=== PATIENT | female | born 1990 | race African-American/Black ===

== ENCOUNTER 2017-09-08 16:12 | Emergency (ER) | payer OTHER ==
--- NOTE | 2017-09-08 16:16 | PDOC ---
History of Present Illness <Abi Rodriguez - Last Filed: 09/08/17 16:25> - General History Source: Patient Exam Limitations: No Limitations - History of Present Illness Initial Comments: 09/08/17 16:29 The patient is a 27 year old female, with no significant past medical history, who presents to the emergency department with a sore throat for approximately 2 days. The patient reports a sore throat and associated pain similar to when she has tonsillitis in the past. Patient endorses associated dry cough, runny nose, nasal congestion, and chills, but denies any fever, headache, or dizziness. Patient reports she has not taken anything for her symptoms other than tea. She reports she has not been eating solids or fluids. She reports abdominal discomfort, but denies any nausea, vomiting, diarrhea, constipation, or changes in urination. She denies any associated chest pain, shortness of breath, diaphoresis, or palpitations. Allergies: NKDA Past Surgical History: None reported. Social History: Non smoker. No ETOH or recreational drug use <Mayelin Odonnell - Last Filed: 09/08/17 16:30> - General Chief Complaint: Sore Throat Stated Complaint: SORE THROAT Time Seen by Provider: 09/08/17 16:16 Past History - Suicide/Smoking/Psychosocial Hx Smoking History: Never smoked Have you smoked in the past 12 months: No Number of Cigarettes Smoked Daily: 0 Hx Alcohol Use: No Substance Use Type: None <Abi Rodriguez - Last Filed: 09/08/17 16:25> <Mayelin Odonnell - Last Filed: 09/08/17 16:30> - Past Medical History Allergies/Adverse Reactions: Allergies Allergy/AdvReac Type Severity Reaction Status Date / Time No Known Allergies Allergy Verified 09/08/17 16:13 Home Medications: Ambulatory Orders NK [No Known Home Medication] 09/08/17 Review of Systems - Review of Systems Able to Perform ROS?: Yes Comments:: 09/08/17 16:29 GENERAL/CONSTITUTIONAL: Yes chills. No fever. No weakness. HEAD, EYES, EARS, NOSE AND THROAT: Yes sore throat, runny nose, nasal congestion. No change in vision. No ear pain or discharge. CARDIOVASCULAR: No chest pain or shortness of breath. RESPIRATORY: Yes cough. No wheezing, or hemoptysis. GASTROINTESTINAL: Yes abdominal discomfort. No nausea, vomiting, diarrhea or constipation. GENITOURINARY: No dysuria, frequency, or change in urination. MUSCULOSKELETAL: No joint or muscle swelling or pain. No neck or back pain. SKIN: No rash NEUROLOGIC: No headache, vertigo, loss of consciousness, or change in strength/ sensation. ENDOCRINE: Yes decreased appetite.. No abnormal weight change. HEMATOLOGIC/LYMPHATIC: No anemia, easy bleeding, or history of blood clots. ALLERGIC/IMMUNOLOGIC: No hives or skin allergy. <Mayelin Odonnell - Last Filed: 09/08/17 16:30> *Physical Exam - Vital Signs Last Vital Signs Temp Pulse Resp BP Pulse Ox 99.8 F H 103 H 20 117/72 98 09/08/17 16:12 09/08/17 16:12 09/08/17 16:12 09/08/17 16:12 09/08/17 16:12 - Physical Exam Comments: 09/08/17 16:30 GENERAL: Awake, alert, and fully oriented, in no acute distress HEAD: No signs of trauma EYES: PERRLA, EOMI, sclera anicteric, conjunctiva clear ENT: Moderate posterior oropharynx erythema, but no exudates. Moist mucosa. Auricles normal inspection, hearing grossly normal, nares patent, NECK: Normal ROM, supple, no lymphadenopathy, JVD, or masses LUNGS: Breath sounds equal, clear to auscultation bilaterally. No wheezes, and no crackles HEART: Regular rate and rhythm, normal S1 and S2, no murmurs, rubs or gallops ABDOMEN: Soft, nontender, normoactive bowel sounds. No guarding, no rebound. No masses EXTREMITIES: Normal range of motion, no edema. No clubbing or cyanosis. No cords, erythema, or tenderness NEUROLOGICAL: Cranial nerves II through XII grossly intact. Normal speech, normal gait SKIN: Warm, Dry, normal turgor, no rashes or lesions noted. <Mayelin Odonnell - Last Filed: 09/08/17 16:30> Medical Decision Making - Medical Decision Making 09/08/17 16:25 patient presents to the ED complaining of two days of sore throat, nasal congestion, non productive cough. Denies fevers but complains of chills. exam is normal except for very mild tachycardia. No symptoms suggestive of strep pharyngitis. Will discharge home with instructions to take motrin and rest. <Abi Rodriguez - Last Filed: 09/08/17 16:25> *DC/Admit/Observation/Transfer - Discharge Dispostion Admit: No <Abi Rodriguez - Last Filed: 09/08/17 16:25> - Attestations Scribe Attestion: 09/08/17 16:30 Documentation prepared by Mayelin Odonnell, acting as territory sales manager medical for Abi Rodriguez MD. <Mayelin Odonnell - Last Filed: 09/08/17 16:30> Diagnosis at time of Disposition: Viral pharyngitis - Discharge Dispostion Disposition: HOME Condition at time of disposition: Good - Patient Instructions Printed Discharge Instructions: DI for Viral Pharyngitis Additional Instructions: return to the ED for very severe sore throat unable to tolerate fluids, severe pain, severe headache with fever and stiff neck, other new or changing symptoms. - Post Discharge Activity Forms/Work/School Notes: Back to Work
[2017-09-08 16:21] VITALS: BP 117/72; PULSE 103; TEMP 99.8; BMI 26.2
== END 2017-09-08 16:37 | disposition home or self-care (01) ==
LOC: FER 16:12
DX: J02.8 Acute pharyngitis due to other specified organisms (principal); B97.89 Other viral agents as the cause of diseases classified elsewhere
CPT/HCPCS: 99281-25

== ENCOUNTER 2021-10-23 14:09 | Emergency (ER) | payer OTHER ==
[2021-10-23 14:20] VITALS: BP 133/86; PULSE 93; TEMP 99.1; BMI 26.6
[2021-10-23] MEDS ORDERED: LIDOCAINE 5% TOPICAL PATCH TP ONE (14:37)
[2021-10-23] MEDS ORDERED: IBUPROFEN 600 MG TABLET (FP) PO ONE ×2 (14:37→14:44)
[2021-10-23] MEDS ORDERED: ACETAMINOPHEN 500 MG TABLET (FP) PO ONE (14:39)
[2021-10-23] MEDS ORDERED: ACETAMINOPHEN 500 MG TABLET (FP) ONE (14:44)
[2021-10-23] MEDS ORDERED: LIDOCAINE 5% TOPICAL PATCH ONE (14:45)
[2021-10-23] MEDS ORDERED: LIDOCAINE PATCH REMOVAL MC SCH (22:00)
== END 2021-10-23 16:00 | disposition home or self-care (01) ==
LOC: FER 14:09
PROC: 3E03329 Introduction of Other Anti-infective into Peripheral Vein, Percutaneous Approach (ICD-10-PCS; principal; 2021-10-23)
PROC: 3E03329 Introduction of Other Anti-infective into Peripheral Vein, Percutaneous Approach (ICD-10-PCS; 2021-10-23)
PROC: 3E033GC Introduction of Other Therapeutic Substance into Peripheral Vein, Percutaneous Approach (ICD-10-PCS; 2021-10-23)
PROC: 3E033GC Introduction of Other Therapeutic Substance into Peripheral Vein, Percutaneous Approach (ICD-10-PCS; 2021-10-23)
PROC: 3E0337Z Introduction of Electrolytic and Water Balance Substance into Peripheral Vein, Percutaneous Approach (ICD-10-PCS; 2021-10-23)
DX: G56.22 Lesion of ulnar nerve, left upper limb (principal); W00.0XXA Fall on same level due to ice and snow, initial encounter
CPT/HCPCS: 73090-TC-LT-FY; 73590-TC-LT-FY; 84703; 96361; 96374; 96375; 99285-25